=== PATIENT | female | born 1945 | race Caucasian/White ===

== ENCOUNTER 2022-01-11 14:18 | Outpatient (CLI) | payer MEDICARE, OTHER | END 2022-01-11 14:19 | disposition home or self-care (01) | LOC: CSHULT 14:18 | PROVIDERS: ATTEND Orthopaedic Surgery | DX: M17.0 Bilateral primary osteoarthritis of knee (principal); Z96.651 Presence of right artificial knee joint | CPT/HCPCS: 93970 ==

== ENCOUNTER 2023-10-27 12:43 | Outpatient (CLI) | payer MEDICARE, OTHER | END 2023-10-27 12:44 | disposition home or self-care (01) | LOC: CSHWCC 12:43 | PROVIDERS: ATTEND Nurse Practitioner Family | DX: T81.32XD Disruption of internal operation (surgical) wound, not elsewhere classified, subsequent encounter (principal); S31.000D Unspecified open wound of lower back and pelvis without penetration into retroperitoneum, subsequent encounter | CPT/HCPCS: 99214; G0463 ==